=== PATIENT | male | born 1970 | race Caucasian/White ===

== ENCOUNTER 2018-07-29 16:14 | Emergency (ER) | payer SELFPAY ==
[~2018-07-29] VITALS: Ht 177.8 cm; Wt 80.0 kg
[2018-07-29 16:21] VITALS: BP 170/100
== END 2018-07-29 21:35 | disposition left against medical advice (07) ==
LOC: ER 16:14
DX: Z53.21 Procedure and treatment not carried out due to patient leaving prior to being seen by health care provider (principal)